=== PATIENT | female | born 1980 | race Caucasian/White ===

== ENCOUNTER 2019-11-22 08:00 | Outpatient (CLI) | payer OTHER, SELFPAY ==
--- NOTE | ~2019-11-22 | US_ITS ---
EXAMINATION: US right upper quadrant DATE: 11/22/2019 08:57 INDICATION: Right upper quadrant abdominal pain. TECHNIQUE: Multiple grayscale and Doppler ultrasound images of the abdomen were obtained. COMPARISON: None FINDINGS: The visualized portions of the head, body, and tail of the pancreas are normal. There are 1 .7 cm and 1.3 cm hyperechoic masses in the liver. No liver surface nodularity. There is normal flow i n main portal vein. The gallbladder is normal in size and contains a 3 mm cholesterol polyp, likely n ot clinically significant. No gallstones or gallbladder wall thickening. There was no sonographic Mur phy sign. The common duct is normal and measures 4 mm. IMPRESSION: 1. Two hyperechoic liver masses measuring up to 1.7 cm. In the absence of known malignancy or chronic liver disease, these findings are likely hemangiomas. Reviewed, dictated and finalized at location A.
== END 2019-11-22 08:01 ==
PROVIDERS: Visit Provider Advanced Practice Midwife
DX: R10.11 Right upper quadrant pain (principal); R16.0 Hepatomegaly, not elsewhere classified
CPT/HCPCS: 76705

== ENCOUNTER 2020-01-25 10:09 | Observation (INO) | payer OTHER, SELFPAY ==
--- NOTE | ~2020-01-25 | US_ITS ---
US OB limited 01/25/2020 12:01 Indication: Check placenta and well-being. Procedure: Real-time Limited obstetrical ultrasound Comparison: Her son dated 01/14/2020 Findings: There is a single living intrauterine in vertex presentation with heart rat e of 134 BPM. Placenta is anterior. The placenta is grossly normal, without suggestion of placenta ab ruption. However, ultrasound is not diagnostic of abruption since acute hemorrhage can be isoechoic to be placenta. Recommend clinical correlation. Amniotic fluid is subjectively normal. Impression: 1: Single living intrauterine in vertex presentation. 2: Anterior placenta without evidence for abnormality. Reviewed, dictated and finalized at location A. H CASER Impression: 1: Single living intrauterine in vertex presentation. 2: Anterior placenta without evidence for abnormality.
[2020-01-25 10:30] VITALS: BMI 30.6
[2020-01-25 11:30] VITALS: BP 118/65; PULSE 103; TEMP 36.6
--- NOTE | 2020-01-25 12:16 | OBADM ---
This patient, Gina Mtz, admitted to the OB room OB Post 116 for observation. Patient/family oriented to hospital policies and general routines including ID bracelet, bed and alarms, visiting hours, pain management, procedures, bathroom and other care routines, personal items, smoking policy, room service/diet, and visiting hours. Patient/Family are encouraged to report perceived risks to care and to ask questions if they do not understand what they are told or what they should do.
[2020-01-25 14:58] LABS: Add Urine Microscopic? YES; Amorphous Sediment Urine Few; Appearance Urine Clear (Clear); Bacteria Urine Trace /hpf; Bilirubin Urine Negative (Negative); Blood Urine Negative (Negative); Color Urine Yellow (Yellow); Glucose Urine UA Negative (Negative); Ketones Urine Trace mg/dL (Negative); Leukocyte Esterase Ur Negative LEU/UL (Negative); Mucus Urine Rare /lpf; Nitrate Urine Negative (Negative); Protein Urine Negative (Negative); RBC Urine 0-2 /hpf (0-2); Specific Grav Ur 1.009 (1.001-1.035); Squamous Epithelial Cell Urine Occasional /hpf (Few); Urobilinogen Urine Negative mg/dL (<2.0); WBC Urine 0-3 /hpf
--- NOTE | 2020-01-28 07:29 | PM.OBTRLD ---
OB - Triage/Final Diagnosis Evaluation Laboratory results: Laboratory Tests 01/25/20 01/25/20 11:27 14:42 Urine Color Yellow Urine Appearance Clear Urine pH 8.0 Ur Specific [place] 1.009 Urine Protein Negative Urine Glucose (UA) Negative Urine Ketones Trace Ur Blood (Man) Negative Urine Nitrate Negative Urine Bilirubin Negative Urine Urobilinogen Negative Leukocyte Esterase Rfl Negative Urine RBC 0-2 Urine WBC 0-3 Ur Squamous Epith Cells Occasional Amorphous Sediment Few H Urine Bacteria Trace Urine Mucus Rare KB Hemoglobin Negative Final Diagnosis (1) False labor: Code(s): O47.9 - False labor, unspecified Status: Acute
== END 2020-01-25 14:38 | disposition home or self-care (01) ==
PROVIDERS: Admitting Provider Obstetrics & Gynecology; Visit Provider Obstetrics & Gynecology
DX: O47.03 False labor before 37 completed weeks of gestation, third trimester (principal); Z3A.36 36 weeks gestation of pregnancy
CPT/HCPCS: 36415; 76815; 81001; 85460; G0378; G0379

== ENCOUNTER 2020-02-12 12:15 | Outpatient (RCR) | payer OTHER, SELFPAY ==
[2020-01-07 09:16] VITALS: BP 97/64; PULSE 83
[2020-01-07 09:30] VITALS: BP 101/64; PULSE 79
[2020-01-07 09:46] VITALS: BP 101/61; PULSE 79
[2020-01-07 10:12] VITALS: BP 97/64; PULSE 86
[2020-01-14 14:05] VITALS: BP 111/60; PULSE 76
--- NOTE | ~2020-02-12 | US_ITS ---
EXAMINATION: US OB BPP wo non-stress DATE: 01/14/2020 12:51 TICKET DISPENSER CHANGER INDICATION: survey TECHNIQUE: Real-time transabdominal obstetric ultrasound. FINDINGS: No prior studies for comparison. There is a single living fetus in vertex presentation. The placenta is anterior without placenta pre via. cardiac activity and movement is noted with a heart rate of 137 beats per minute. Biophysical profile: breathin of 2 movement: 2 of 2 tone: 2 of 2 Amniotic flud pocket: 2 of 2 Total score: 8 of 8 IMPRESSION: 1. Single living intrauterine in vertex presentation. 2: Total biophysical profile score of 8/8. Reviewed, dictated and finalized at location B. ET DISPENSER CHANGER
[2020-02-12 13:17] VITALS: BP 105/70; PULSE 94
== END 2020-02-15 07:54 | disposition home or self-care (01) ==
LOC: ANHOBOP 12:15
PROVIDERS: Visit Provider Obstetrics & Gynecology
DX: O24.419 Gestational diabetes mellitus in pregnancy, unspecified control (principal); Z3A.34 34 weeks gestation of pregnancy; Z3A.35 35 weeks gestation of pregnancy; Z3A.39 39 weeks gestation of pregnancy
CPT/HCPCS: 59025; 76819

== ENCOUNTER 2020-02-14 09:30 | Inpatient (IN) | payer OTHER, SELFPAY ==
--- NOTE | 2020-01-18 13:12 | PC.NURSE ---
VERIFIED WITH OR SCHEDULE AND PATIENT --C/S WITH TUBAL LIGATION ON 02/14/20 AT 0730 PATIENT GIVEN REQUISITION FOR PRE-OP LAB DRAW ON 02/12/20
[2020-02-14] VITALS (75 sets, daily range): BP systolic 98–127; BP diastolic 55–100; PULSE 60–103; RESP 14–20; TEMP 36.1–37.1; O2SAT 93–100; BMI 30.3
[2020-02-14 09:57] LABS: Basophils Percent Auto 0.3 % (0.2-1.2); Eosinophils Absolute Auto 0.1 K/mm3 (0-0.3); Eosinophils Percent Auto 1.4 % (0-4.4); Hemoglobin 11.5 g/dL (12.0-15.0); Immature Granulocyte Absolute 0.06 K/mm3 (0.00-0.031); Immature Granulocyte Percent A 0.6 % (0-0.5); Lymphocytes Absolute Auto 1.49 K/mm3 (0.9-3.2); Lymphocytes Percent Auto 14.9 % (18.3-44.2); Mean Corpuscular HGB Conc 33.8 g/dl (32-36); Mean Corpuscular Hemoglobin 31.3 pg (26-34); Mean Corpuscular Volume 92.4 fl (80-100); Mean Platelet Volume 9.6 fl (7.4-10.4); Monocytes Absolute Auto 0.9 K/mm3 (0.1-0.6); Monocytes Percent Auto 9.3 % (2.6-8.5); Neutrophils Absolute Auto 7.3 K/mm3 (1.3-6.7); Neutrophils Percent Auto 73.5 % (45.5-73.1); Platelet Count Result 220 k/mm3 (150-375); Red Blood Count 3.68 M/mm3 (4.2-5.4); Red Cell Distribution Width 14.5 % (11.5-14.5)
[2020-02-14] MEDS: LACTATED RINGERS 1,000 ML 999 ML IV CONT (10:00)
[2020-02-14 10:10] LABS: Glucose Point of Care 97 (65-105)
--- NOTE | 2020-02-14 10:12 | LDADM ---
This patient, Gina Mtz, was admitted to Labor/Delivery/Recovery 119 on 02/14/20 at 09:30. Plans for labor, pain management and were discussed with patient. Patient/family oriented to hospital policies and general routines including ID bracelet, bed and alarms, visiting hours, pain management, procedures, bathroom and other care routines, personal items, smoking policy, room service/diet and guest tray routines, security routines, and visiting hours. Patient/Family are encouraged to report perceived risks to care and to ask questions if they do not understand what they are told or what they should do. See OBIX for further documentation.
[2020-02-14] MEDS: fentaNYL CITRATE INJ (*CRX) 100 MCG/2 ML VIAL IV PUSH (10:37)
[2020-02-14] MEDS: LACTATED RINGERS 1,000 ML 125 ML IV CONT (10:39)
--- NOTE | 2020-02-14 11:11 | WPDANESEPPF ---
Anes - Initial Pre Proc Eval Procedure: Operation Date: 02/14/20 12:00 Proposed Procedures p Repeat Section, Bilateral Tubal Ligation - Manasa Agrawal MD Date/Time: 02/14/20 11:11 Surgeon: Manasa Agrawal MD Pre Op Diagnosis: Scheduled C/Section Patient Data Age: 39 Gender: F Height: 5 ft Weight: 70.45 kg Last Vital Signs Pulse 86 02/14/20 11:01 BP 106/64 02/14/20 11:01 Allergies Allergy/AdvReac Type Severity Reaction Status Date / Time No Known Allergies Allergy Verified 01/18/20 12:43 Home Medications Medication Instructions Recorded Confirmed Type citalopram [Celexa] 40 mg PO DAILY 01/18/20 01/25/20 History ferrous sulfate 325 mg PO BID 01/18/20 01/25/20 History insulin NPH isoph U-100 human 14 unit SUBCUT HS 01/18/20 02/14/20 History prenat.vits,matt,idn-ugyc-eugwk 1 tablet PO DAILY 01/18/20 01/25/20 History Laboratory Tests 02/14/20 02/14/20 02/14/20 09:49 09:50 10:07 WBC 10.0 K/mm3 K/mm3 (4.5-10.0) RBC 3.68 M/mm3 L M/mm3 (4.2-5.4) Hgb 11.5 g/dL L g/dL (12.0-15.0) Hct 34.0 % L % (37.0-47.0) MCV 92.4 fl fl (80-100) MCH 31.3 pg pg (26-34) MCHC 33.8 g/dl g/dl (32-36) RDW 14.5 % % (11.5-14.5) Plt Count 220 k/mm3 k/mm3 (150-375) MPV 9.6 fl fl (7.4-10.4) Immature Gran % (Auto) 0.6 % H % (0-0.5) Neut % (Auto) 73.5 % H % (45.5-73.1) Lymph % (Auto) 14.9 % L % (18.3-44.2) [place] % (Auto) 9.3 % H % (2.6-8.5) Eos % (Auto) 1.4 % % (0-4.4) Baso % (Auto) 0.3 % % (0.2-1.2) Lymph # (Auto) 1.49 K/mm3 K/mm3 (0.9-3.2) [place] # (Auto) 0.9 K/mm3 H K/mm3 (0.1-0.6) Eos # (Auto) 0.1 K/mm3 K/mm3 (0-0.3) Baso # (Auto) 0.0 K/mm3 K/mm3 (0.0-0.1) Abs Immat Gran (auto) 0.06 K/mm3 H K/mm3 (0.00-0.031) Absolute Neuts (auto) 7.3 K/mm3 H K/mm3 (1.3-6.7) Absolute Nucleated RBC 0.0 K/mm3 K/mm3 (0.0-0.012) Nucleated RBC % 0.0 % % (0.0-0.2) POC Capillary Glucose 97 mg/dl mg/dl (65-105) RPR Pending Patient hx anesthesia problems: none Family hx anesthesia problems: none [facility] Past Medical History Medical History (Updated 02/14/20 @ 11:[address] MD) Gestational diabetes Surgical History Surgical History History of section Family History Family History Grandparent Congenital heart failure Diabetes mellitus Grandparent Congenital heart failure Parkinson disease Mother Hypertension Social History Social History Smoking packs per day: 0.5 Smoking cigarettes per day: 10.0 Years smoked: 18 Smoking pack-years: 9.00 Smoking status: Former smoker Tobacco type: cigarettes Second hand tobacco smoke exposure: No Substance use: never Spiritual care concerns: No Anes - Eval Final PreProcedure Day of Procedure 02/14/20 11:11 Patient weight: overweight Heart: regular rate and rhythm Lungs: clear to auscultation Airway: Mallampati scale Neurological: alert and oriented Last oral intake: >/= 8 hours ASA classification: III Anesthetic plan: proceed Anesthesia type and monitoring: regional spinal and standard monitoring Informed Consent: The patient's anesthetic plan and its attendant risks and benefits were discussed with the patient/family/POA. Questions were solicited and answers provided to the satisfaction of the patient/family/POA.
--- NOTE | 2020-02-14 12:07 | PM.IMHP ---
H&P: HPI History of Present Illness Date/Time: 02/14/20 12:07 Chief Complaint: previous csection Narrative: Gina Mtz is a 39 year old female multipara at term with a previous delivery and undesired fertility. We have agreed to perform delivery and bilateral tubal ligation. She denies any loss of fluid, vaginal bleeding. She does report some contractions. She is having painful contractions at this time. She denies any nausea, vomiting, fever, chills. She denies any shortness of breath or chest pain. Review of Systems Constitutional: Constitutional: Reports no additional constitutional complaints, Denies fatigue, Denies headache(s), Denies lethargy and Denies weakness Eyes: Eyes: Reports no additional eye complaints, Denies blurry vision and Denies photophobia ENT: Reports as per HPI, Denies headache(s) and Denies neck pain Cardiovascular: Cardiovascular: Denies chest pain, Denies diaphoresis, Denies leg edema, Denies palpitations and Denies dyspnea Respiratory: Respiratory: Denies hemoptysis, Denies dyspnea and Denies wheezing Gastrointestinal: Gastrointestinal: Denies abdominal pain, Denies melena, Denies bloating, Denies hematochezia, Denies nausea and Denies vomiting Genitourinary: Genitourinary: Reports no additional female genitourinary complaints Musculoskeletal: Musculoskeletal: Denies joint swelling, Denies neck pain, Denies numbness and Denies stiffness Neurologic: Denies Abnormal speech present, Denies confusion, Denies headache(s), Denies numbness and Denies weakness Psychiatric: Psychiatric: Denies anxiety, Denies confusion, Denies depression, Denies homicidal ideation and Denies suicidal ideation Endocrine: Endocrine: Denies fatigue and Denies palpitations Allergic/Immunologic: Allergic/Immunologic: Denies wheezing PMF Past Medical History Medical History (Updated 02/14/20 @ 12:09 by Manasa Agrawal MD) Gestational diabetes Surgical History Surgical History History of section Family History Family History Grandparent Congenital heart failure Diabetes mellitus Grandparent Congenital heart failure Parkinson disease Mother Hypertension Social History Social History Smoking packs per day: 0.5 Smoking cigarettes per day: 10.0 Years smoked: 18 Smoking pack-years: 9.00 Smoking status: Former smoker Tobacco type: cigarettes Second hand tobacco smoke exposure: No Substance use: never Spiritual care concerns: No Meds Home Medications and Allergies Home Medications Medication Instructions Recorded Confirmed Type citalopram [Celexa] 40 mg PO DAILY 01/18/20 01/25/20 History ferrous sulfate 325 mg PO BID 01/18/20 01/25/20 History insulin NPH isoph U-100 human 14 unit SUBCUT HS 01/18/20 02/14/20 History prenat.vits,matt,ths-znmb-ebbpr 1 tablet PO DAILY 01/18/20 01/25/20 History Allergies Allergy/AdvReac Type Severity Reaction Status Date / Time No Known Allergies Allergy Verified 01/18/20 12:43 Vital Signs Vital Signs - 24 hr 02/14/20 09:38 02/14/20 09:45 02/14/20 10:01 Temperature Pulse Rate 97 103 H 93 Blood Pressure 121/78 109/73 98/65 L 02/14/20 10:02 02/14/20 10:15 02/14/20 10:31 Temperature Pulse Rate 93 85 78 Blood Pressure 98/65 L 110/73 109/66 02/14/20 10:45 02/14/20 11:01 02/14/20 11:15 Temperature Pulse Rate 89 86 81 Blood Pressure 103/77 106/64 110/76 02/14/20 11:31 02/14/20 11:44 Temperature 98.4 F Pulse Rate 80 Blood Pressure 109/60 Exam Const: General: healthy appearing, comfortable and no acute distress; No confusion Orientation/consciousness: No confusion Eyes: Direct Ophthalmoscopy: No photophobia Resp: Auscultation: clear to auscultation bilaterally, no rales, no rhonchi and no wheezes Cardio: Ra
[2020-02-14] MEDS: ceFAZolin 2 GM/D5W 50 ML 2 GM/50 ML BAG IVPB (12:09)
[2020-02-14] MEDS: fentaNYL CITRATE INJ (*CRX) 100 MCG/2 ML VIAL 25 MCG IV PUSH ×10 (14:00→15:13)
[2020-02-14] MEDS: OXYTOCIN 30 UNITS/NS 500 ML 30 UNITS/500 ML BAG 125 UNITS IV CONT (14:06)
[2020-02-14] MEDS: KETOROLAC 30 MG/ML VIAL (*BKC) IV PUSH (15:07)
[2020-02-14] MEDS: HYDROmorphone HCL INJ (*CRX) 1 MG/ML SYR 0.5 MG IV PUSH ×4 (15:27→15:59)
--- NOTE | 2020-02-14 15:30 | P.OP_ITS ---
Procedure Note - Detailed Date of procedure: 02/14/20 Pre-op diagnosis: Scheduled C/Section Unwanted fertility Post-op diagnosis: same Procedure performed: Repeat low-transverse delivery, tubal ligation Description of procedure: The patient was taken the operating room. She was prepped and draped in the dorsal supine position with leftward tilt after induction of spinal anesthetic. When anesthesia was found to be adequate a low- transverse skin incision was made and carried down to the level the fascia with the knife. The fascial incision was made at the midline with a scalpel. The fascial incision was extended laterally with Almodovar scissors. The fascia was tented upward superior and inferior with Regan clamps. The rectus muscles were dissected off bluntly. The rectus muscles at the midline. The preperitoneal fat was dissected bluntly at the superior aspect of the separate the rectus muscles. The peritoneal cavity was entered bluntly in the same area. The peritoneal incision was extended superior and inferior with good position of bladder. Bladder blade was inserted. A low-transverse incision was made on the uterus with the scalpel. It was carried down the level of the amniotic cavity with a knife. The amniotic cavity bluntly. The uterine incision was made laterally with blunt traction. The infant was delivered. The cord was clamped and cut. The infant was handed off to waiting pediatric staff. Cord bloods were obtained. The placenta was removed manually. The uterus was exteriorized. Uterus cleared of all clots and debris. Uterus closed in 0 Vicryl in a running locked fashion. An imbricating layer of 0 Vicryl was also placed on the to bolster the closure. Fallopian tube was grasped in the ampullary region with a [place]. It was raised away from the accompanying vein. A window was created in the broad ligament in this area of the tube. 0 Vicryl was used to ligate the proximal distal ends of the skeletonize region of the tube. The segment of the tube was resected with scissors. The cut surfaces were cauterized. On the contralateral side the procedure was performed identically. The uterus was returned to the abdomen. The gutters were cleared of all clots and debris. The fascia was closed 0 Vicryl in a running fashion. Subcutaneous tissue was irrigated and bleeding areas were cauterized. The skin was closed with subcuticular absorbable zaid. The incision was covered with derma taveras. The patient tolerated the procedure well. She was taken recovery room stable condition. Sponge, lap, needle counts were correct x2. Anesthesia: spinal Surgeon: Manasa Agrawal MD Estimated blood loss (mL): 210 Drains: No Packing: No Pathology: none sent Complications: No immediate complications Condition: stable Disposition: floor Findings: Normal maternal anatomy. Average size infant with normal Apgars.
--- NOTE | 2020-02-14 16:02 | PC.NURSE ---
Patient transferred to post room #285 per stretcher from labor and delivery. Support person present. Oriented to unit, room, information board, rooming in, admission packet and security measures. Patient verbalizes understanding.
[2020-02-14] MEDS: HYDROcodone/acetaminophen (*CRX) 10-325 MG TABLET 1 TAB PO ×3 (16:38→22:35)
[2020-02-14] MEDS: IBUPROFEN 600 MG TABLET PO (22:35)
[2020-02-15] MEDS: HYDROcodone/acetaminophen (*CRX) 5-325 MG TABLET 1 TAB PO ×7 (01:50→23:40)
[2020-02-15 03:15] VITALS: BP 125/77; PULSE 83; RESP 16; TEMP 36.9
[2020-02-15] MEDS: IBUPROFEN 600 MG TABLET PO ×4 (04:45→23:40)
[2020-02-15 05:06] LABS: Hematocrit 30.8 % (37.0-47.0); Hemoglobin 10.4 g/dL (12.0-15.0); Mean Corpuscular HGB Conc 33.8 g/dl (32-36); Mean Corpuscular Hemoglobin 30.7 pg (26-34); Mean Corpuscular Volume 90.9 fl (80-100); Mean Platelet Volume 9.9 fl (7.4-10.4); Platelet Count Result 172 k/mm3 (150-375); Red Blood Count 3.39 M/mm3 (4.2-5.4); Red Cell Distribution Width 14.1 % (11.5-14.5); White Blood Count 10.2 K/mm3 (4.5-10.0)
--- NOTE | 2020-02-15 07:39 | WPDANLDPN2 ---
Anes-Prog Note L&D Date/Time: 02/15/20 07:39 Comfortable throughout: section Neuraxial method: spinal Epidural/Spinal procedure site: clean & non-tender Neuro status: Neuro function grossly intact. Cardiovascular status: normal Respiratory status: normal Airway patency: baseline Mental status: baseline Post-Op hydration status: normal Vital Signs: Last Vital Signs Temp 36.9 C 02/15/20 03:15 Pulse 83 02/15/20 03:15 Resp 16 02/15/20 03:15 BP 125/77 02/15/20 03:15 Pulse Ox 100 02/14/20 16:30 Pain score (VAS): 2/10 I/O: Intake & Output 02/14/20 02/14/20 02/15/20 15:59 23:59 07:59 Intake Total 1000 600 700 Output Total 671 090 3404 Balance 602 0 -1200 Post-procedural complaints: none Patient feedback: Patient satisfied with anesthetic care.
--- NOTE | 2020-02-15 07:39 | WPDANLDNPN2 ---
Anes-Prog Note L&D-Neuraxial Date/Time: 02/15/20 07:40 Neuraxial medications: intrathecal PF morphine Opiod-related complaints: none Patient feedback: Patient satisfied with post-operative pain management.
--- NOTE | 2020-02-15 07:49 | P.PNOB_ITS ---
OB - PN: Subj Subjective Date/time seen: 02/15/20 07:49 Patient comments: no complaints, pain well controlled, tolerating diet and flatus present OB - PN: Obj Data Labs CBC & Chem 7: 02/15/20 03:19 Labs: Laboratory Results - last 24 hr 02/14/20 02/14/20 02/14/20 09:49 09:50 10:07 WBC 10.0 RBC 3.68 L Hgb 11.5 L Hct 34.0 L MCV 92.4 MCH 31.3 MCHC 33.8 RDW 14.5 Plt Count 220 MPV 9.6 Immature Gran % (Auto) 0.6 H Neut % (Auto) 73.5 H Lymph % (Auto) 14.9 L [place] % (Auto) 9.3 H Eos % (Auto) 1.4 Baso % (Auto) 0.3 Lymph # (Auto) 1.49 [place] # (Auto) 0.9 H Eos # (Auto) 0.1 Baso # (Auto) 0.0 Abs Immat Gran (auto) 0.06 H Absolute Neuts (auto) 7.3 H Absolute Nucleated RBC 0.0 Nucleated RBC % 0.0 POC Capillary Glucose 97 Blood Type O Positive Antibody Screen Negative 02/15/20 03:19 WBC 10.2 H RBC 3.39 L Hgb 10.4 L Hct 30.8 L MCV 90.9 MCH 30.7 MCHC 33.8 RDW 14.1 Plt Count 172 MPV 9.9 Immature Gran % (Auto) Neut % (Auto) Lymph % (Auto) [place] % (Auto) Eos % (Auto) Baso % (Auto) Lymph # (Auto) [place] # (Auto) Eos # (Auto) Baso # (Auto) Abs Immat Gran (auto) Absolute Neuts (auto) Absolute Nucleated RBC Nucleated RBC % POC Capillary Glucose Blood Type Antibody Screen OB - PN A/P Plan day: 1 Comments: Post Op LTCS - no problems, routine recovery Time Spent With Patient Time: Total time spent is greater than 50% in coordination of care (as documented) at patient's floor/unit and/or counseling patient: Exam Const: General: cooperative, healthy appearing, comfortable and no acute distress Resp: Auscultation: no crackles, no rales, no rhonchi and no wheezes Cardio: Rhythm: regular rhythm Heart sounds: no click and no murmurs GI: Inspection: non-distended Auscultation: normal bowel sounds Extrem: General: normal to inspection, no pedal edema and no calf tenderness
[2020-02-15 08:05] VITALS: BP 108/66; PULSE 86; RESP 18; TEMP 36.9; O2SAT 100
[2020-02-15] MEDS: CITALOPRAM HYDROBROMIDE 20 MG TABLET 40 MG PO (08:38)
[2020-02-15] MEDS: DOCUSATE SODIUM 100 MG CAPSULE PO ×2 (08:39→16:39)
[2020-02-15] MEDS: MULTIVIT/MIN/PREN/FOL AC/IRON TABLET 1 TAB PO (08:39)
[2020-02-15] MEDS: FERROUS SULFATE 324 MG TABLET PO (08:39)
[2020-02-15 11:35] VITALS: BP 112/67; PULSE 79; RESP 16; TEMP 36.8; O2SAT 98
[2020-02-15] MEDS: SIMETHICONE 80 MG TAB.CHEW PO ×3 (16:46→23:40)
[2020-02-15 20:00] VITALS: BP 115/83; PULSE 72; RESP 16; TEMP 36.8
[2020-02-16] MEDS: SIMETHICONE 80 MG TAB.CHEW PO (04:25)
[2020-02-16] MEDS: HYDROcodone/acetaminophen (*CRX) 5-325 MG TABLET 1 TAB PO ×3 (04:25→10:31)
[2020-02-16 07:04] LABS: Rapid Plasma Reagin Non-Reactive (NonReactive)
[2020-02-16] MEDS: IBUPROFEN 600 MG TABLET PO (07:48)
[2020-02-16] MEDS: CITALOPRAM HYDROBROMIDE 20 MG TABLET 40 MG PO (07:48)
[2020-02-16] MEDS: DOCUSATE SODIUM 100 MG CAPSULE PO (07:48)
[2020-02-16] MEDS: MULTIVIT/MIN/PREN/FOL AC/IRON TABLET 1 TAB PO (07:48)
--- NOTE | 2020-02-16 07:58 | PM.OBPNVD ---
OB - PN: Subj Subjective Date/time seen: 02/16/20 07:58 Patient comments: no complaints, pain well controlled, incisional pain, tolerating diet and flatus present OB - PN: Obj Data Labs CBC & Chem 7: 02/15/20 03:19 Labs: Laboratory Results - last 24 hr 02/14/20 09:49 RPR Non-reactive OB - PN A/P Plan day: 2 Plan: routine care Comments: POD#2 LTCS - no problems, to d/c Time Spent With Patient Time: Total time spent is greater than 50% in coordination of care (as documented) at patient's floor/unit and/or counseling patient: Exam Const: General: comfortable, no acute distress and alert Resp: Effort & Inspection: normal respiratory effort Auscultation: no crackles, no rales and no rhonchi Cardio: Rate: regular rate Heart sounds: no click, no murmurs and no rubs GI: Inspection: non-distended GI Palp: No Tenderness to palpation present (GI) Auscultation: normal bowel sounds Other: Incision - CDI Extrem: General: normal to inspection, no pedal edema and no calf tenderness
--- NOTE | 2020-02-16 07:59 | PM.OBDSVD ---
DS: Admitting Diagnosis Admitting Diagnosis Admitting Diagnosis: Term Gertation, Pevious DS: Discharge Diagnosis Discharge Diagnosis (1) Previous section: Code(s): Z98.891 - History of uterine scar from previous surgery Status: Acute (2) Encounter for female sterilization procedure: Code(s): Z30.2 - Encounter for sterilization Status: Acute (3) Post-op pain: Code(s): G89.18 - Other acute postprocedural pain Status: Acute OB - DS: Summary OB Procedures : None OB Procedures Intrapartum: and Tubal ligation OB Procedures: : None Peripartum Data Delivery Method: Section Procedures: Procedures Operation Date: 02/14/20 12:00 Actual Procedures Side Surgeon p Section Manasa Agrawal MD complications: none Status at Discharge Functional status at discharge: independent ambulation Time Spent with Patient Time attestation: Total time spent providing and/or coordinating discharge services: Time spent: Less than 30 minutes DS: Data Data Completed and Pending Pending studies at discharge: Pending at discharge 02/14/20 12:33 Surgical [PTH] Routine Surgical [PTH] Routine Labs on day of discharge: Labs from last 24 hours 02/14/20 09:49 RPR Non-reactive Discharge Plan Discharge Attending physician on discharge: Manasa Agrawal Discharging Clinician: Manasa Agrawal Patient Disposition: Home, Self-Care Activity: pelvic rest Diet: regular Patient Instructions: Antibiotic Form Stand Alone Forms: General Discharge Information Follow-up/Referrals: Manasa Agrawal MD [Physician] - Discharge Medications: New hydrocodone-acetaminophen 5-325 mg tablet 1 - 2 tablet PO Q4H PRN (Reason: pain) Qty: 25 RF: 0 Continued citalopram [Celexa] 40 mg Tablet 40 mg PO DAILY RF: 0 prenat.vits,matt,byu-pezq-kzzen Tablet 1 tablet PO DAILY RF: 0 Discontinued ferrous sulfate 325 mg (65 mg iron) Tablet 325 mg PO BID RF: 0 insulin NPH isoph U-100 human 100 unit/mL Cartridge 14 unit SUBCUT HS RF: 0 Date of admission: 02/14/20 09:30 Primary Care Provider: PHYSICIAN,RESEARCH LABORATORY SPECIALIST Admitting Provider: Manasa Agrawal Attending physician on admission: Manasa Agrawal Condition: Stable
[2020-02-16 08:25] VITALS: BP 113/77; PULSE 78; RESP 16; TEMP 36.4; O2SAT 99
--- NOTE | 2020-02-16 10:47 | PC.NURSE ---
Consulted with patient, reviewed infant feeding cues, frequencies, duration of feedings, feeding elimination flow sheet, and signs of adequate intake. Demonstrated stimulation techniques to wake infant for feeding. Mom had to breast. Reviewed positioning/alignment, holding breast and asymmetrical latch on. was able to latch correctly. nursed eagerly, with steady draws and occasional swallowing noted. Reviewed signs of a correct latch, effective nursing and suck swallow ratio. was able to maintain latch without discomfort to mother. Nipple care reviewed. Instructed mother to call out for RN assistance if she is unable to latch for feeding or she has discomfort with nursing. Instructed feeding should be initiated three hours from start of last feeding or if feeding cues are noted before. Mother voiced understanding of information shared. Mother verbalizes she is able to independently latch infant with appropriate positioning/alignment. She states she has nipple discomfort, is feeding as required and waking infant to feed if needed. has had 8 effective feedings in the past 24 hours, and is currently meeting outcomes for weight, output, jaundice and feeding frequencies. Mother states she feels confident to continue effective at home. Reviewed transition to breast milk, signs of adequate intake, and engorgement/relief. Instructed to call ICP if intake/output less than required. Reviewed community resources on the [facility] website and in the Mom/Baby guide. Information on outpatient services provided. Mother has no further questions at this time.
[2020-02-18 11:00] VITALS: BP 117/76; PULSE 85; RESP 20; TEMP 37.1; O2SAT 98
== END 2020-02-16 11:45 | disposition home or self-care (01) | DRG 785 ==
LOC: ANHLDR 09:56 → ANHOB2 16:07
PROVIDERS: Advanced Practice Midwife; Admitting Provider Obstetrics & Gynecology; Visit Provider Obstetrics & Gynecology
PROC: 10D00Z1 Extraction of Products of Conception, Low, Open Approach (ICD-10-PCS; CPT 59514; principal; 2020-02-14 12:00)
DX: O34.211 Maternal care for low transverse scar from previous cesarean delivery (principal); Z37.0 Single live birth; Z3A.39 39 weeks gestation of pregnancy; O24.429 Gestational diabetes mellitus in childbirth, unspecified control; Z30.2 Encounter for sterilization
CPT/HCPCS: 36415; 85025; 85027; 86592; 86850; 86900; 86901; 88302; 88307; A9270; J0131; J0690; J1170; J1885; J2274; J2370; J2590; J3010; J7120